=== PATIENT | female | born 1970 | race Caucasian/White ===

== ENCOUNTER 2016-12-05 05:41 | Outpatient (CLI) | payer MEDICAID | END 2016-12-05 05:42 | disposition critical access hospital (66) | DX: R50.9 Fever, unspecified (principal); R10.9 Unspecified abdominal pain | CPT/HCPCS: A0425; A0429 ==

== ENCOUNTER 2016-12-05 05:58 | Emergency (ER) | payer MEDICAID ==
[2016-12-05] MEDS ORDERED: ACETAMINOPHEN 325 MG TABLET PO STA (06:01)
[2016-12-05] MEDS ORDERED: ACETAMINOPHEN 500 MG TABLET PO ONE (06:05)
[2016-12-05] MEDS ORDERED: SODIUM CHLORIDE 0.9% 1,000 ML IV ONE (06:09)
== END 2016-12-05 07:41 | disposition home or self-care (01) ==
DX: R50.9 Fever, unspecified (principal); R00.0 Tachycardia, unspecified
CPT/HCPCS: 36415; 71010; 80053; 81003; 83690; 85025; 96360; 99284; A9270

== ENCOUNTER 2016-12-08 11:03 | Emergency (ER) | payer MEDICAID ==
[2016-12-08] MEDS ORDERED: SULFAMETH/TRIMETH DS 800/160 MG TABLET PO ONE (11:11)
[2016-12-08] MEDS ORDERED: ceFAZolin 1 GM VIAL IM STA (12:10)
[2016-12-08] MEDS ORDERED: ceFAZolin 1 GM VIAL ONE (12:13)
[2016-12-08] MEDS ORDERED: WATER FOR INJECTION,STERILE 10 ML ONE (12:13)
== END 2016-12-08 12:45 | disposition home or self-care (01) ==
DX: L03.115 Cellulitis of right lower limb (principal); S91.101A Unspecified open wound of right great toe without damage to nail, initial encounter; X58.XXXA Exposure to other specified factors, initial encounter; R03.0 Elevated blood-pressure reading, without diagnosis of hypertension

== ENCOUNTER 2017-06-25 09:16 | Emergency (ER) | payer MEDICAID ==
[2017-06-25 09:40] VITALS: BP 121/75
--- NOTE | 2017-06-25 10:41 | ED Physician Documentation ---
History of Present Illness - Stated complaint Stated Complaint: R LEG SWOLLEN/FEVER - Chief complaint Chief Complaint: Ext Problem - History obtained from History obtained from: Patient, Family - History of Present Illness Timing: How many days ago (2) - Additonal information Additional information: 46-year-old female has had some swelling and redness in the right lower extremity. This started out with a fever 3 days ago. She has had cellulitis in this leg previously and required repeated IM injections. Review of Systems Constitutional: reports: Fever, Chills, Myalgias, Fatigue Eyes: denies: Decreased vision Ears: denies: Ear pain Nose: denies: Congestion Respiratory: denies: Cough GI: denies: Vomiting Skin: reports: Rash Musculoskeletal: reports: Extremity pain, Extremity swelling. denies: Neck pain , Back pain Neurologic: denies: Generalized weakness, Focal weakness, Numbness PD PAST MEDICAL HISTORY - Past Medical History Cardiovascular: None Respiratory: None Neuro: None Endocrine/Autoimmune: None GI: None : None HEENT: Chronic hearing loss Psych: None Musculoskeletal: Osteoarthritis Derm: None - Past Surgical History Past Surgical History: Yes Ortho: Hip replacement - Present Medications Home Medications: Ambulatory Orders Medication Instructions Recorded Confirmed Ferrous Sulfate [Iron] 325 mg PO DAILY 10/28/14 06/25/17 Cefdinir 300 mg PO BID #20 capsule 06/25/17 - Allergies Allergies/Adverse Reactions: Allergies Allergy/AdvReac Type Severity Reaction Status Date / Time No Known Drug Allergies Allergy Verified 06/25/17 09:25 - Social History Does the pt smoke?: No Smoking Status: Never smoker Does the pt drink ETOH?: No Does the pt have substance abuse?: No PD ED PE NORMAL - Vitals Vital signs reviewed: Yes (tachy and hypertensive ) - General General: No acute distress, Well developed/nourished - HEENT HEENT: Atraumatic, PERRL - Respiratory Respiratory: No respiratory distress - Derm Derm: Normal color, Warm and dry - Extremities Extremities: No deformity, Other (There is swelling and tenderness with erythema to the right LE in an irregular distribution. There is no entrance wound. ) - Neuro Neuro: No motor deficit, No sensory deficit, Normal speech Eye Opening: Spontaneous Motor: Obeys Commands Verbal: Oriented GCS Score: 15 - Psych Psych: Normal mood, Normal affect Results - Vitals Vitals: Vital Signs - 24 hr 06/25/17 06/25/17 09:22 09:30 Temperature 36.9 C 36.8 C Heart Rate 120 H 108 H Respiratory 16 Rate Blood Pressure 129/84 H 121/75 O2 Saturation 99 97 Oxygen O2 Source Room air PD MEDICAL DECISION MAKING - ED course Complexity details: reviewed old records, reviewed results, re-evaluated patient , considered differential, d/w patient, d/w family ED course: 46-year-old female with cellulitis of right lower extremity started with a fever she has had this similarly previously here in the emergency department she is administered Rocephin 1 g intramuscular and we will place her on some oral antibiotic and follow-up. I have instructed her to use a warm compress 2- 3 times per day and to stay off of her leg for the most part. She has had a complicated course of this previously and I have asked her to return to the hospital if she does not have continued improvement. I do believe that we are catching this earlier this time around than previously. Departure - Departure Disposition: 01 Home, Self Care Clinical Impression: Cellulitis Qualifiers: Site of cellulitis: extremity Site of cellulitis of extremity: lower extremity Laterality: right Qualified Code(s): L03.115 - Cellulitis of right lower limb Condition: Stable Instructions: ED Infec Skin Cellulitis Follow-Up: Francois Strickland MD [Primary Care Provider] - Prescriptions: Cefdinir 300 mg PO BID #20 capsule
[2017-06-25] MEDS ORDERED: cefTRIAXone 1 GM VIAL IM STA (10:55)
[2017-06-25] MEDS ORDERED: cefTRIAXone 1 GM VIAL ONE (11:02)
[2017-06-25] MEDS ORDERED: LIDOCAINE 1% 2 ML VIAL ONE (11:03)
== END 2017-06-25 11:07 | disposition home or self-care (01) ==
LOC: ED 09:16
DX: L03.115 Cellulitis of right lower limb (principal)
CPT/HCPCS: 96372; 99283

== ENCOUNTER 2017-07-17 15:32 | Observation (INO) | payer MEDICAID ==
--- NOTE | 2017-07-17 16:00 | ED Physician Documentation ---
History of Present Illness - Stated complaint Stated Complaint: FEMALE - Chief complaint Chief Complaint: General - History obtained from History obtained from: Patient - History of Present Illness Timing: Other (46-year-old woman presents with heavy vaginal bleeding. It started today and she is gone through about 5 pads and extra strength tampons so far today. It is not associated weakness or dizziness. She had a similar episode about 10 days ago. She says her menses have been heavy and frequent. 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 HEENT: Chronic hearing loss Psych: None Musculoskeletal: Osteoarthritis Derm: None - Past Surgical History Past Surgical History: Yes Ortho: Hip replacement - Present Medications Home Medications: Ambulatory Orders Medication Instructions Recorded Confirmed Ferrous Sulfate [Iron] 325 mg PO DAILY 10/28/14 07/17/17 Cefdinir 300 mg PO BID #20 capsule 06/25/17 07/17/17 Norgestimate-Ethinyl Estradiol 1 each PO TID #1 packet 07/17/17 [Mononessa 28 Tablet] - Allergies Allergies/Adverse Reactions: Allergies Allergy/AdvReac Type Severity Reaction Status Date / Time No Known Drug Allergies Allergy Verified 06/25/17 09:25 - Social History Does the pt smoke?: No Smoking Status: Never smoker Does the pt drink ETOH?: No Does the pt have substance abuse?: No - Immunizations Immunizations are current?: No Immunizations: TDAP >10years/unknown - POLST Patient has POLST: No PD ED PE NORMAL - Vitals Vital signs reviewed: Yes - General General: Alert and oriented X 3, No acute distress - HEENT HEENT: PERRL, EOMI - Neck Neck: Supple, no meningeal sign, No bony TTP - Cardiac Cardiac: No murmur, Other (tachycardic, regular) - Respiratory Respiratory: No respiratory distress, Clear bilaterally - Abdomen Abdomen: Soft, Non tender - Female 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 Unable to visualize anything on spec exam.) - Back Back: No CVA TTP, No spinal TTP - Derm Derm: Normal color, Warm and dry - Extremities Extremities: No edema, No calf tenderness / cord - Neuro Neuro: Alert and oriented X 3, Normal speech Eye Opening: Spontaneous Motor: Obeys Commands Verbal: Oriented GCS Score: 15 - Psych Psych: Normal mood, Normal affect Results - Vitals Vitals: Vital Signs - 24 hr 07/17/17 07/17/17 07/17/17 15:35 17:36 19:41 Temperature 37.0 C 36.9 C 36.8 C Heart Rate 117 H 120 H 109 H Respiratory 22 15 16 Rate Blood Pressure 134/92 H 136/91 H 132/82 H O2 Saturation 100 98 07/17/17 07/17/17 20:07 20:11 Temperature 37.1 C 37.1 C Heart Rate 116 H 106 H Respiratory 16 16 Rate Blood Pressure 120/93 H 120/93 H O2 Saturation 100 Oxygen O2 Source Room air - Labs Labs: Laboratory Tests 07/17/17 07/17/17 07/17/17 16:06 16:06 16:06 WBC 5.0 RBC 2.68 L Hgb 7.6 L 7.6 L Hct 23.8 L 24.2 L MCV 90.4 MCH 28.4 MCHC 31.4 L RDW 15.3 H Plt Count 292 MPV 9.4 Neut # 3.3 Lymph # 1.0 L [place] # 0.4 Eos # 0.1 Baso # 0.1 Absolute Nucleated RBC 0.00 Nucleated RBC % 0.1 Sodium 138 Potassium 3.2 L Chloride 104 Carbon Dioxide 22 Anion Gap 12.0 BUN 9 Creatinine 0.9 Estimated GFR (MDRD) 67 L Glucose 107 H Calcium 9.2 Urine Color Urine Clarity Urine pH Ur Specific [place] Urine Protein Urine Glucose (UA) Urine Ketones Urine Occult Blood Urine Nitrite Urine Bilirubin Urine Urobilinogen Ur Leukocyte Esterase Urine RBC Urine WBC Ur Squamous Epith Cells Urine Bacteria Urine Mucus Ur Microscopic Review Urine Culture Comments Urine HCG, Qual Blood Type Blood Type Recheck Antibody Screen Crossmatch IS Only 07/17/17 07/17/17 07/17/17 16:06 16:15 18:15 WBC RBC Hgb Hct MCV MCH MCHC RDW Plt Count MPV Neut # Lymph # [place] # Eos # Baso # Absolute Nucleated RBC Nucleated RBC % Sodium Potassium Chloride Carbon Dioxide Anion Gap BUN Creatinine Estimated GFR (MDRD) Glucose Calcium Urine Color YELLOW Urine Clarity HAZY Urine pH 6.0 Ur Specific [place] 1.015 Urine Protein NEGATIVE Urine Glucose (UA) NEGATIVE Urine Ketones NEGATIVE Urine Occult Blood LARGE H Urine Nitrite NEGATIVE Urine Bilirubin NEGATIVE Urine Urobilinogen 0.2 (NORMAL) Ur Leukocyte Esterase NEGATIVE Urine RBC TNTC H Urine WBC 0-3 Ur Squamous Epith Cells RARE Squamous Urine Bacteria Few Urine Mucus Few Strands Ur Microscopic Review INDICATED Urine Culture Comments NOT INDICATED Urine HCG, Qual NEGATIVE Blood Type A POSITIVE Blood Type Recheck A POSITIVE Antibody Screen NEGATIVE Crossmatch IS Only See Detail PD MEDICAL DECISION MAKING - ED course ED course: 46-year-old woman found to have heavy vaginal bleeding with significant anemia in the setting of fibroid uterus on ultrasound. She was becoming tachycardic here so given the active bleeding decision made to transfuse and spoke with Dr. Tee, the on-call swimming pool cleaner at 5:45 PM who will see the patient in the emergency department. He did see the patient in the emergency department and what he would like would be for the patient received 2 units of packed red cells, IV Premarin and tranexamic acid. She is to be discharged on a monophasic control pill 3 times daily. He will see her on Friday in follow-up. However after further evaluation he decided to place her in observation which is not unreasonable given the active bleeding, tachycardia. IV Premarin was not available in the hospital, also no control pills so fredy was substituted. Departure - Departure Disposition: ED Place in Observation Clinical Impression: DUB (dysfunctional uterine bleeding) Fibroid uterus Qualifiers: Uterine leiomyoma location: unspecified location Qualified Code(s): D25.9 - Leiomyoma of uterus, unspecified Anemia Qualifiers: Anemia type: iron deficiency Iron deficiency anemia type: chronic blood loss Qualified Code(s): D50.0 - Iron deficiency anemia secondary to blood loss ( chronic) Condition: Good Record reviewed to determine appropriate education?: Yes Instructions: ED Bleed Irregular Vaginal Follow-Up: Karthik Tee MD [Provider Admit Priv/Credential] - Prescriptions: Norgestimate-Ethinyl Estradiol [Mononessa 28 Tablet] 1 each PO TID #1 packet Comments: Go to the pharmacy tomorrow to pickle 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 You are to take only the blue tablets, and you will take it [address] Tee would like to see you in follow-up on Friday, call his office tomorrow to arrange this. Return if worse.
[2017-07-17 16:11] LABS: HCT - HEMATOCRIT 23.8 % (37.0-47.0); HGB - HEMOGLOBIN 7.6 g/dL (12.0-16.0)
[2017-07-17 16:26] LABS: BILIRUBIN,URINE NEGATIVE (NEGATIVE)
[2017-07-17 16:28] LABS: UA w/ MICROSCOPIC CHARGE YES
[2017-07-17 16:29] LABS: HCG UR QUAL NEGATIVE
[2017-07-17 16:33] LABS: UR CULTURE IF IND NOT INDICATED; WBC,URINE 0-3 /HPF (0-5)
[2017-07-17 16:37] LABS: BASOPHILS # (AUTO) 0.1 10^3/uL (0.0-0.1); BASOPHILS % (AUTO) 1.2 %; EOSINOPHILS # (AUTO) 0.1 10^3/uL (0.0-0.7); EOSINOPHILS % (AUTO) 2.6 %; HCT - HEMATOCRIT 24.2 % (37.0-47.0); HGB - HEMOGLOBIN 7.6 g/dL (12.0-16.0); LYMPHOCYTES % (AUTO) 20.6 %; MEAN CORPUSCULAR HEMOGLOBIN 28.4 pg (27.0-31.0); MEAN CORPUSCULAR HGB CONC 31.4 g/dL (32.0-36.0); MEAN CORPUSCULAR VOLUME 90.4 fL (81.0-99.0); MEAN PLATELET VOLUME 9.4 fL (7.9-10.8); MONOCYTES # (AUTO) 0.4 10^3/uL (0.0-1.0); MONOCYTES % (AUTO) 8.8 %; NEUTROPHILS # (AUTO) 3.3 10^3/uL (1.5-6.6); NEUTROPHILS % (AUTO) 66.8 %; NUCLEATED RED BLOOD CELLS AUTO 0.1 /100WBC; RED BLOOD COUNT 2.68 10^6/uL (4.20-5.40); RED CELL DISTRIBUTION WIDTH 15.3 % (12.0-15.0)
[2017-07-17 16:42] LABS: CALCIUM 9.2 mg/dL (8.5-10.3); CREATININE 0.9 mg/dL (0.4-1.0); POTASSIUM 3.2 mmol/L (3.5-5.0)
[2017-07-17] MEDS ORDERED: ESTROGENS, CONJUGATED 25 MG VIAL IVP STA (18:45)
[2017-07-17] MEDS ORDERED: TRANEXAMIC ACID 1,000 MG in SODIUM CHLORIDE 0.9% 100ML 100 ML IV STA (18:45)
--- NOTE | 2017-07-17 18:50 | Ultrasound Preliminary Report ---
Exam: US PELVIC COMPLETE - NON OB IMPRESSION: 1. Limited examination. The uterus is poorly seen. The endometrium is not seen. The ovaries are not s een. 2. The uterus is enlarged and heterogeneous with at least 2 solid dominant masses measuring greater t burt 6 cm in diameter. These masses are nonspecific but most commonly represent uterine fibroids. [facility] SITE ID: [id number]
--- NOTE | 2017-07-17 18:53 | Ultrasound Report ---
EXAM: PELVIC ULTRASOUND EXAM DATE: 07/17/2017 04:33 PM. CLINICAL HISTORY: Heavy VB. COMPARISON: None. TECHNIQUE: Realtime transabdominal pelvic scan performed to identify the uterus and adnexa and as an overview of other pelvic structures, followed by transvaginal scan to provide greater detail of the u terus and adnexa, with static image documentation. FINDINGS: Uterus: 14 x 10.4 x 7 cm, volume 533 cc. The uterus is not well seen. The endometrium and myometrium junction is not seen. There are at least 2 solid markedly heterogeneous uterine masses. Masses: There is a left lateral fundal solid mass measuring 6.2 x 6.0 x 5.5 cm. There is a right late ral fundal solid mass measuring 6.2 x 5.2 x 4.9 cm. Other discrete masses are not seen with suboptima l visualization of the uterus. Endometrium: Not seen Cervix: Unremarkable. Right Ovary: Not seen Left Ovary: Not seen Free Fluid: None. Other: None. IMPRESSION: 1. Limited examination. The uterus is poorly seen. The endometrium is not seen. The ovaries are not s een. 2. The uterus is enlarged and heterogeneous with at least 2 solid dominant masses measuring greater t burt 6 cm in diameter. These masses are nonspecific but most commonly represent uterine fibroids. [facility] Referring Provider Line: [phone] SITE ID: [id number]
[2017-07-17] MEDS ORDERED: TRANEXAMIC ACID 1,000 MG/10 ML VIAL ONE (20:05)
[2017-07-17] MEDS ORDERED: ULIPRISTAL ACETATE 30 MG TABLET PO STA (20:08)
[2017-07-17] MEDS ORDERED: ZOLPIDEM 5 MG TABLET PO PRN (20:20)
[2017-07-17] MEDS ORDERED: ONDANSETRON 4 MG/2 ML VIAL IVP PRN (20:20)
[2017-07-17] MEDS ORDERED: ACETAMINOPHEN 325 MG TABLET PO PRN (20:20)
[2017-07-17] MEDS ORDERED: SODIUM CHLORIDE FLUSH 0.9% 10 ML SYRINGE IVP PRN (20:20)
[2017-07-17] MEDS ORDERED: HYDROcod/ACETAM 5/325 MG TABLET PO PRN (20:20)
[2017-07-17] MEDS ORDERED: ULIPRISTAL ACETATE 30 MG TABLET PO ONE (20:25)
[2017-07-17] MEDS ORDERED: diphenhydrAMINE 25 MG CAPSULE PO STA (20:31)
[2017-07-17] MEDS: SODIUM CHLORIDE FLUSH 0.9% 10 ML SYRINGE IVP SCH (23:06)
[2017-07-18] MEDS: NS W/20 MEQ KCL 1,000 ML IV SCH ×2 (02:18→05:18)
[2017-07-18] MEDS: SODIUM CHLORIDE FLUSH 0.9% 10 ML SYRINGE IVP SCH (05:18)
[2017-07-18 06:16] LABS: BASOPHILS # (AUTO) 0.1 10^3/uL (0.0-0.1); EOSINOPHILS # (AUTO) 0.1 10^3/uL (0.0-0.7); HCT - HEMATOCRIT 27.9 % (37.0-47.0); LYMPHOCYTES # (AUTO) 1.1 10^3/uL (1.5-3.5); LYMPHOCYTES % (AUTO) 20.7 %; MEAN CORPUSCULAR HEMOGLOBIN 28.1 pg (27.0-31.0); MEAN CORPUSCULAR HGB CONC 32.3 g/dL (32.0-36.0); MEAN CORPUSCULAR VOLUME 87.2 fL (81.0-99.0); MEAN PLATELET VOLUME 8.6 fL (7.9-10.8); MONOCYTES # (AUTO) 0.5 10^3/uL (0.0-1.0); MONOCYTES % (AUTO) 9.4 %; NEUTROPHILS # (AUTO) 3.7 10^3/uL (1.5-6.6); NEUTROPHILS % (AUTO) 66.9 %; NUCLEATED RED BLOOD CELLS AUTO 0.1 /100WBC; RED CELL DISTRIBUTION WIDTH 17.2 % (12.0-15.0); UNCORRECTED WHITE BLOOD COUNT 5.5 x10^3/uL; WHITE BLOOD COUNT 5.5 x10^3/uL (4.8-10.8)
[2017-07-18 06:26] LABS: ALBUMIN/GLOBULIN RATIO 1.7 (1.0-2.2); BILIRUBIN,TOTAL 1.2 mg/dL (0.2-1.0); CALCIUM 8.2 mg/dL (8.5-10.3); CREATININE 0.7 mg/dL (0.4-1.0); POTASSIUM 3.8 mmol/L (3.5-5.0); TOTAL PROTEIN 5.7 g/dL (6.7-8.2)
--- NOTE | 2017-07-18 08:52 | Discharge Plan ---
Discharge Plan Disposition: 01 Home, Self Care Condition: Stable Prescriptions: Norgestimate-Ethinyl Estradiol [Mononessa 28 Tablet] 1 each PO TID #1 packet Diet: Regular Activity Restrictions: No Restrictions Shower Restrictions: No Driving Restrictions: No Instruction Topics: ED Bleed Irregular Vaginal Additional Instructions or Follow Up instructions: Go to the pharmacy tomorrow to cloth picker the control. You are to take only the blue tablets, and you will take it [address] Tee would like to see you in follow-up on Friday, call his office tomorrow to arrange this. Return if worse. No Smoking: If you smoke, Please STOP! Call for help. Follow-up with: Karthik Tee MD [Provider Admit Priv/Credential] -
--- NOTE | 2017-07-18 08:55 | PROVIDER PROGRESS NOTE ---
Subjective - Prog Note Date Prog Note Date: 07/18/17 Prog Note Time: 09:00 - Subjective Pt reports feeling: Improved Subjective: Ms. Toth feels better and her vaginal bleeding has markedly reduced since myomectomy. We discussed the pathology found on her ultrasound and the need for future hysterectomy or uterine fibroid embolization. Patient's EKG suggest cardiac ischemia and hospitalist consultation requested. Patient states she can were walk 1/2 mile before becoming winded. Patient had a bowel movement this morning and is taking solid nutrition. Objective - Vital Signs/Intake & Output Vital Signs: Vital Signs x48h Temp Pulse Pulse Resp BP BP Pulse Ox 07/18/17 08:13 98.4 F 99 19 147/79 H 98 07/18/17 05:17 98.2 F 94 18 109/66 96 07/18/17 05:15 98.2 F 94 18 109/66 07/18/17 01:44 98.4 F 103 H 16 115/70 07/18/17 01:28 98.6 F 105 H 17 138/72 H Intake & Output: Intake & Output 07/15/17 07/16/17 07/17/17 07/18/17 23:59 23:59 23:59 23:59 Intake Total 1110 1070 Balance 1110 1070 - Lab Results Fish Bones: 07/18/17 06:00 07/18/17 06:00 Other Labs: Lab Results x24hrs 07/18/17 07/18/17 Range/Units 06:00 06:00 WBC 5.5 (4.8-10.8) x10^3/uL RBC 3.20 L (4.20-5.40) 10^6/uL Hgb 9.0 L (12.0-16.0) g/dL Hct 27.9 L (37.0-47.0) % MCV 87.2 (81.0-99.0) fL MCH 28.1 (27.0-31.0) pg MCHC 32.3 (32.0-36.0) g/dL RDW 17.2 H (12.0-15.0) % Plt Count 232 (130-450) 10^3/uL MPV 8.6 (7.9-10.8) fL Neut # 3.7 (1.5-6.6) 10^3/uL Lymph # 1.1 L (1.5-3.5) 10^3/uL [place] # 0.5 (0.0-1.0) 10^3/uL Eos # 0.1 (0.0-0.7) 10^3/uL Baso # 0.1 (0.0-0.1) 10^3/uL Absolute Nucleated RBC 0.01 x10^3/uL Nucleated RBC % 0.1 /100WBC Sodium 140 (135-145) mmol/L Potassium 3.8 (3.5-5.0) mmol/L Chloride 111 (101-111) mmol/L Carbon Dioxide 23 (21-32) mmol/L Anion Gap 6.0 (6-13) BUN 8 (6-20) mg/dL Creatinine 0.7 (0.4-1.0) mg/dL Estimated GFR (MDRD) 89 (>89) Glucose 92 (70-100) mg/dL Calcium 8.2 L (8.5-10.3) mg/dL Total Bilirubin 1.2 H (0.2-1.0) mg/dL AST 17 (10-42) IU/L ALT 13 (10-60) IU/L Alkaline Phosphatase 39 L (42-121) IU/L Total Protein 5.7 L (6.7-8.2) g/dL Albumin 3.6 (3.2-5.5) g/dL Globulin 2.1 (2.1-4.2) g/dL Albumin/Globulin Ratio 1.7 (1.0-2.2) Exam - Exam Vital Signs: Vital Signs (72 hours) 07/17/17 07/17/17 07/17/17 20:48 21:28 21:47 Temperature 98.3 F 98.2 F 98.2 F Heart Rate 96 100 Heart Rate [ 98 Apical] Respiratory 16 17 17 Rate Blood Pressure 127/72 140/81 H Blood Pressure 129/77 [Left Brachial artery] O2 Saturation 100 98 07/18/17 07/18/17 07/18/17 00:00 01:28 01:44 Temperature 98.1 F 98.6 F 98.4 F Heart Rate 105 H 103 H Heart Rate [ 109 H Apical] Respiratory 18 17 16 Rate Blood Pressure 138/72 H 115/70 Blood Pressure 112/60 [Left Brachial artery] O2 Saturation 98 07/18/17 07/18/17 07/18/17 05:15 05:17 08:13 Temperature 98.2 F 98.2 F 98.4 F Heart Rate 94 Heart Rate [ 94 99 Apical] Respiratory 18 18 19 Rate Blood Pressure 109/66 Blood Pressure 109/66 147/79 H [Left Brachial artery] O2 Saturation 96 98 General: Alert, Oriented x3, No acute distress HEENT: EOMI, Mucous membr. moist/pink Lungs: Clear to auscultation Cardiovascular: Regular rate, Normal S1, Normal S2 Abdomen: Normal bowel sounds, No tenderness, Other (Uterine bleeding has subsided only spotting on peripads) Extremities: No clubbing, No edema Skin: No significant lesion (Cellulitis) Neurological: Normal tone, Sensation intact Psych/Mental Status: Mood NL Assessment/Plan - Assessment/Plan Assessment: Patient's uterine bleeding has subsided and Hemoglobin has been corrected adequately. Patient's EKG shows possible cardiac ischemia which needs to be investigated and determined. Ultimately patient will require intervention such as hysterectomy or fibroid embolization to control her bleeding. Endometrial biopsy pending. Plan: 1. Patient's evaluation will continue with hospitalist consult and probable stress test today to rule out cardiac ischemia. 2. Obtain records from [facility] since patient is an unreliable historian 3. student services dean consult to determine patient's living situation and ability for self-care, Especially after possible surgery or embolization. 4. Patient to [facility]. Tee for continued follow-up and eventual treatment planning 5. If possible, will discharge patient today so that she may keep her appointment at the [facility].
[2017-07-18] MEDS ORDERED: POLYETHYLENE GLYCOL 3350 17 GM PACKET PO SCH (09:00)
--- NOTE | 2017-07-18 09:17 | HISTORY & PHYSICAL EXAMINATION ---
DATE OF OBSERVATION: 07/17/2017 Observation Note. DIAGNOSES 1. Menorrhagia. 2. Severe anemia (hemoglobin 7.6). 3. Tachycardia. 4. Uterine leiomyoma on ultrasound. Patient is a 46-year-old 2, para 1-0-1-0 (stillbirth x1, spontaneous AB x1) who presents to [facility] emergency room with copious vaginal bleeding that started today. She has saturated 6-7 pads and co ntinues to bleed. She has a heart rate between 120 and 110 but maintaining blood pressure in the 130s over 90s realm. She denies orthostatic dizziness but does feel very fatigued and weak. She has a roberto gstanding history of menorrhagia and was on oral iron therapy at the [facility]. We are unable to her records. There is a question of developmental delay. Records are on request. She denies any abnor mal Pap smears, the last was done 5 years ago at [facility]. She admits to chlamydia in the past. She is not currently sexually active. She has no breast complaints to report. She does not fe el as if she is menopausal, though she had hot flashes 6 months ago. She denies easy bleeding tendenc ies and denies family history of easy bleeding. She denies thromboembolic events in the past. PAST MEDICAL HISTORY: She denies chronic history but is known to have osteoarthritis. 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 She denies compl ications in that procedure. ALLERGIES: NO KNOWN DRUG ALLERGIES. MEDICATIONS 1. Ferrous sulfate 325 daily. 2. Cefdinir. 3. Just started mononessa OCPs. SOCIAL HISTORY: Lives in a group apartment complex. Has a boyfriend who helps her with transportation . Denies tobacco or substance abuse, has socially consumed 1-2 drinks a month. End-of-life directive not on file. REVIEW OF SYSTEMS CONSTITUTIONAL: Weakness, fatigue. ENT: Negative. CARDIAC: Negative. RESPIRATORY: Negative. GASTROINTESTINAL: Negative. GENITOURINARY: Reference HPI. MUSCULOSKELETAL: Arthritides particularly in the lower extremities. SKIN: Recent minor cellulitis. REVIEW OF SYSTEMS GENERAL: Patient is slower than expected in comprehension but is cooperative and good natured. Instru ctions and questions were repeated at least 2-3 times to ensure comprehension. HEENT: Dental plaque, caries. EOMI. Non-icteric sclerae. No thyromegaly. LUNGS: Clear to auscultation. CARDIAC: Rapid pulse, flow murmur, systolic ejection murmur, no gallop or rub. ABDOMEN: Obese. No organomegaly, no tenderness. EXTERNAL GENITALIA: Blood on sheets and external genitalia; no lesions. VAGINA: Small clots at the top; over time, flow slowed. CERVIX: Blocking the endocervical canal was a 2 x 1.5 fibroid. UTERUS: 8-10 weeks' size, multi-lobular, nontender. ADNEXA: Normal mobile ovaries, difficult to estimate exact size due to body habitus. EXTREMITIES: Hip replacement scars. No calf tenderness, no edema. NEUROLOGIC: Grossly intact, but detailed exam not accomplished. LABORATORY: Hemoglobin 7.6, platelets 292, potassium 3.2 low, sodium 138, creatinine 0.9, glucose 107 . Blood type A positive, antibody screen negative, 2 units being prepared. Quantitative beta-hCG neg ative. Urinalysis: Blood contamination, but otherwise normal. ASSESSMENT: Patient has heavy vaginal bleeding today that has resulted in severe anemia and tachycard ia. The bleeding seems to be from fibroids, but given her age, assessment of uterine cavity is requir ed. Endometrial biopsy was accomplished uneventfully. Will begin medical therapy to stabilize her end ometrial lining. Desired Premarin IV but not available in the hospital. Substituted combination E/P c ontraceptive 3 tabs daily with tranexamic acid. Due to patient's symptoms and her baseline cognitive understanding, she will be admitted overnight for observation. PLAN 1. Two units packed red blood cells. 2. Combination oral contraceptives t.i.d. 3. Tranexamic acid as an antifibrinolytic. 4. Reevaluation in the morning. 5. If bleeding becomes brisk overnight, we will consider transfer to a facility having active OR. 6. Discussed this plan with patient's guardian by telephone earlier. Discussed this with the patient, who was in concordant with this plan. JOB #: [id number] EXT JOB #:[id number]
--- NOTE | 2017-07-18 09:26 | OPERATIVE REPORT ---
DATE OF SURGERY: 07/17/2017 00:00:00 PREOPERATIVE DIAGNOSES 1. Menorrhagia with severe anemia (hemoglobin 7.6) and tachycardia. 2. Known leiomyomata. POSTOPERATIVE DIAGNOSES 1. Menorrhagia with severe anemia (hemoglobin 7.6) and tachycardia. 2. Known leiomyomata. 3. Await pathology. PROCEDURES 1. Myomectomy, transcervical. 2. Endometrial biopsy. SURGEON: Karthik Tee MD, FACOG ANESTHESIA: None. BLOOD LOSS: Approximately 10-15 mL during the procedure; prior to that at least 300 mL on bed sheets and then by historical account. COMPLICATIONS: None. FINDINGS: The uterus is 8-10 weeks' size, lobular, and with fibroids. There is a single fibroid 1.5 x 2.0 cm prolapsed into the endocervical canal. The cavity sounds to a distance of 8.5. Ovaries seem n ormal by palpation. SPECIMENS 1. Previously mentioned fibroid. 2. Endometrial biopsy. TECHNIQUE: Prior to the procedure, we reviewed and the intent, mechanics, risks and benefits with the patient. She signed the appropriate informed consent paperwork. Patient was in the low dorsal lithotomy position. A lighted speculum was inserted and the upper porti on of the vagina evacuated of clots. There was a significant size leiomyoma blocking the way into the endocervical canal. This was grasped with single-tooth tenaculum and rotated until it was uneventful ly avulsed. This stemmed some of the bleeding. Next the endocervical barrel was grasped with a single-tooth tenaculum and the Pipelle introduced thr ough the canal for a distance of about 8.5 cm. Pipelle was actuated and swept about the cavity. A mod erate amount of bloody tissue was obtained. At this point, the procedure was terminated. All instrume nts were removed. We observed the cervix for 3 minutes to 4 minutes to ensure that there was no signi ficant bleeding. DISPOSITION: Patient was then admitted to the hospital for observation in stable condition. JOB #: [id number] EXT JOB #:[id number]
[2017-07-18 13:35] VITALS: BP 136/79
--- NOTE | 2017-07-18 14:24 | CONSULTATION NOTE ---
DATE OF CONSULTATION: LOCATION: Observation. HISTORY OF PRESENT ILLNESS: This is a 46-year-old white female with a history of developmental delay, she lives in a fdc. The patient presented with vaginal bleeding and was admitted for transfus ion because of significant anemia and continued vaginal bleeding and was under the care of TITLE I ASSISTANT. Sandra overton did receive a transfusion and hemoglobin improved from 7.6-9.0. Today, she underwent an EKG, possib ly due to tachycardia at rest) and a cardiology consult was called because of an abnormal EKG. Dr. Jonny murray, the TITLE I ASSISTANT tells me that the patient will need a hysterectomy in approximately 1 week and will t herefore need cardiopulmonary clearance. PAST MEDICAL HISTORY 1. Developmental delay, lives in a fdc. 2. Iron deficiency, possibly due to anemia. REVIEW OF SYSTEMS: The patient describes no chest pain, denies shortness of breath with gentle activi ty, but did tell Dr. Tee that she gets short of breath after walking 1 block. She denies palpitatio ns, lightheadedness or syncope. She denies leg edema. She denies any past cardiac history or pulmonar y history. A comprehensive review of systems was performed and is negative except for the above. MEDICATIONS AT HOME 1. Ginkgo biloba. 2. Iron. 3. Multivitamin. 4. Estradiol. ALLERGIES: NONE. SOCIAL HISTORY: She never smoked, drinks extremely rare alcohol, denies any drug use. PHYSICAL EXAMINATION: GENERAL: Reveals a mildly obese white female in no acute distress. VITAL SIGNS: Blood pressure 109/66, pulse 94 and sinus rhythm, afebrile, oxygen saturation 96% on j luis m air. HEENT: Reveals dysmorphic facial features with wide set eyes and a long facial structure. Her oral mu cosa is moist. NECK: Shows no JVD. No carotid bruits are heard. CHEST: Clear. HEART: Sounds are normal. No audible murmurs. There is no RV or gallop. ABDOMEN: Soft, obese. Positive bowel sounds. Nontender. EXTREMITIES: No clubbing, cyanosis or edema. No calf tenderness. NEUROLOGIC: Intact. LAB DATA: Labs today. Normal electrolytes, normal BUN, creatinine, normal liver test. Hemoglobin was 7.6 and after transfusion 9.0. The rest of the CBC is unremarkable. Her urine had large occult blood, but otherwise unremarkable. EKG, sinus tachycardia at a rate of 110, diffuse ST-T abnormalities - ischemia cannot be ruled out, p rolonged QT interval of 597. There is no old EKG available for comparison. She had no chest x-ray done during this admission. IMPRESSION/DIAGNOSES 1. Abnormal EKG. 2. Shortness of breath. 3. Anemia, felt to be due to vaginal bleeding. 4. ASSOCIATE CHEMIST abnormality with fibroid which will require hysterectomy. 5. Developmental delay and dysmorphic faces. PLAN: The patient should undergo preoperative stress testing given her abnormal resting EKG and no pr evious EKG for comparison. Lipid testing should be done for risk stratification. The patient should h ave an echo to evaluate overall structural heart findings given this abnormal EKG. A stress test woul d need to get prior authorization by the PCP, this depends on her insurance coverage. If the patient is unable to follow commands to do treadmill for the stress portion, a nuclear stress test with Sada can and nuclear imaging should be done. Because of the resting EKG abnormality, a plain treadmill elian t is not adequate, she needs some form of imaging during the stress test. Thank you for allowing me to participate in the care of this patient. JOB #: [id number] EXT JOB #:[id number]
== END 2017-07-18 13:53 | disposition home or self-care (01) ==
LOC: ED 15:32 → OBS 20:20
PROVIDERS: ADMIT Obstetrics & Gynecology; ATTEND Obstetrics & Gynecology
PROC: 0UB97ZZ Excision of Uterus, Via Natural or Artificial Opening (ICD-10-PCS; principal; 2017-07-17)
PROC: 0UB97ZX Excision of Uterus, Via Natural or Artificial Opening, Diagnostic (ICD-10-PCS; 2017-07-17)
DX: D25.9 Leiomyoma of uterus, unspecified (principal); D62 Acute posthemorrhagic anemia; R94.31 Abnormal electrocardiogram [ECG] [EKG]; R00.0 Tachycardia, unspecified; H91.90 Unspecified hearing loss, unspecified ear; M19.90 Unspecified osteoarthritis, unspecified site; E66.9 Obesity, unspecified; Z68.32 Body mass index [BMI] 32.0-32.9, adult; R62.50 Unspecified lack of expected normal physiological development in childhood; Z96.643 Presence of artificial hip joint, bilateral; Z79.3 Long term (current) use of hormonal contraceptives; Z79.899 Other long term (current) drug therapy
CPT/HCPCS: 36415; 36430; 58145; 76830; 76856; 80048; 80053; 81001; 81025; 85014; 85018; 85025; 86850; 86900; 86901; 86920; 87491; 87591; 93005; 96365; 99284; 99285; A9270; G0378; P9016; 81003; 87086

== ENCOUNTER 2017-07-31 08:00 | Outpatient (CLI) | payer MEDICAID ==
[2017-07-31 19:21] LABS: THYROID STIMULATING HORMONE 2.75 uIU/mL (0.34-5.60)
[2017-07-31 19:49] LABS: FOLLICLE STIMULATING HORMONE 3.23 mIU/mL
== END 2017-07-31 23:59 ==
LOC: LAB.N 08:00
PROVIDERS: ATTEND Obstetrics & Gynecology
DX: Z13.29 Encounter for screening for other suspected endocrine disorder (principal); N95.9 Unspecified menopausal and perimenopausal disorder
CPT/HCPCS: 36415; 83001; 83002; 84436; 84439; 84443

== ENCOUNTER 2017-08-14 08:36 | Outpatient (CLI) | payer MEDICAID ==
[2017-08-14 19:11] LABS: HGB - HEMOGLOBIN 12.4 g/dL (12.0-16.0); MEAN CORPUSCULAR HEMOGLOBIN 28.6 pg (27.0-31.0); MEAN CORPUSCULAR HGB CONC 31.4 g/dL (32.0-36.0); MEAN CORPUSCULAR VOLUME 90.8 fL (81.0-99.0); MEAN PLATELET VOLUME 10.2 fL (7.9-10.8); RED BLOOD COUNT 4.34 10^6/uL (4.20-5.40); RED CELL DISTRIBUTION WIDTH 15.7 % (12.0-15.0); WHITE BLOOD COUNT 6.3 x10^3/uL (4.8-10.8)
== END 2017-08-14 08:37 ==
LOC: LAB.N 08:36
PROVIDERS: ATTEND Obstetrics & Gynecology
DX: N92.4 Excessive bleeding in the premenopausal period (principal)
CPT/HCPCS: 36415; 85025

== ENCOUNTER 2017-08-15 08:00 | Outpatient (CLI) | payer MEDICAID | END 2017-08-15 23:59 | disposition home or self-care (01) | LOC: LAB.R 08:00 | PROVIDERS: ATTEND Obstetrics & Gynecology | DX: D50.9 Iron deficiency anemia, unspecified (principal) | CPT/HCPCS: 82270 ==

== ENCOUNTER 2017-09-15 11:43 | Outpatient (CLI) | payer MEDICAID ==
[2017-09-15 12:33] LABS: BASOPHILS # (AUTO) 0.1 10^3/uL (0.0-0.1); BASOPHILS % (AUTO) 0.9 %; EOSINOPHILS # (AUTO) 0.1 10^3/uL (0.0-0.7); EOSINOPHILS % (AUTO) 1.4 %; HGB - HEMOGLOBIN 12.1 g/dL (12.0-16.0); LYMPHOCYTES # (AUTO) 1.1 10^3/uL (1.5-3.5); LYMPHOCYTES % (AUTO) 18.8 %; MEAN CORPUSCULAR HEMOGLOBIN 29.4 pg (27.0-31.0); MEAN CORPUSCULAR HGB CONC 33.7 g/dL (32.0-36.0); MEAN CORPUSCULAR VOLUME 87.4 fL (81.0-99.0); MEAN PLATELET VOLUME 9.3 fL (7.9-10.8); MONOCYTES # (AUTO) 0.5 10^3/uL (0.0-1.0); MONOCYTES % (AUTO) 8.3 %; NEUTROPHILS # (AUTO) 4.2 10^3/uL (1.5-6.6); NEUTROPHILS % (AUTO) 70.6 %; PLT - PLATELET COUNT 243 10^3/uL (130-450); RED BLOOD COUNT 4.12 10^6/uL (4.20-5.40); RED CELL DISTRIBUTION WIDTH 14.5 % (12.0-15.0)
[2017-09-15 12:49] LABS: ALBUMIN 4.6 g/dL (3.2-5.5); ALBUMIN/GLOBULIN RATIO 1.6 (1.0-2.2); BILIRUBIN,TOTAL 0.3 mg/dL (0.2-1.0); CREATININE 0.8 mg/dL (0.4-1.0); TOTAL PROTEIN 7.4 g/dL (6.7-8.2)
== END 2017-09-15 11:44 | disposition home or self-care (01) ==
LOC: LAB 11:43
PROVIDERS: ATTEND Obstetrics & Gynecology
DX: N92.0 Excessive and frequent menstruation with regular cycle (principal)
CPT/HCPCS: 36415; 80053; 85025; 86850; 86900; 86901

== ENCOUNTER 2017-09-17 07:01 | Observation (INO) | payer MEDICAID ==
--- NOTE | 2017-09-16 09:05 | PREOP HISTORY & PHYSICAL ---
DATE OF SERVICE: 09/15/2017 Physician: Karthik Tee MD ANTICIPATED SURGERY: 09/17/2017. DIAGNOSES 1. Large fibroid uterus, 12-week size or greater. 2. Menorrhagia. 3. History of severe anemia (hemoglobin 7.6) associated with tachycardia. INTENDED PROCEDURE: Laparoscopic assisted vaginal hysterectomy; bilateral salpingectomy; possible laparotomy; Cystoscopy. HISTORY OF PRESENT ILLNESS: Patient is a 46-year-old 2, para 1-0-1-0 (stillbirth x1, spontaneous AB x1) who presented to the emergency room on 2016 with severe uterine bleeding and deep symptomatic anemia (hemoglobin 7.6). She reports fatigue, weakness. She has a long history of menorrhagia and was on supplemental iron therapy at the [facility]. Ultrasound confirmed bulky uterine fibroids with the uterus measuring 14 x 10.5 x 7 cm. Right and left ovary were not seen. She was hospitalized and transfused 3 units of packed red blood cells. She followed up in our clinic in which endometrial biopsy was done which confirmed benign pathology. Thyroid studies were normal and FSH showed that the patient was not menopausal. Patient notes pelvic pressure and pain. She has no easy bleeding history or family history of coagulopathy. PAST MEDICAL HISTORY: She denies chronic disease history, but is known to have osteoarthritis. 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 She denies any complications from that procedure. ALLERGIES: NO KNOWN DRUG ALLERGIES. MEDICATIONS 1. Ferrous sulfate 325 t.i.d. 2. Mononessa OCPs for endometrial suppression. SOCIAL HISTORY: The patient lives in a group apartment complex and has a boyfriend who helps her with transportation. She denies tobacco, substance abuse. Socially she consumes 1 to 2 drinks a month. An End of Life Directive is not on file. She has a pet dog, which she is very close to. FAMILY HISTORY: Denies inheritable disease history. REVIEW OF SYSTEMS CONSTITUTIONAL: Prior weakness and fatigue. HEENT: Negative. CARDIAC: Negative. RESPIRATORY: Negative. GASTROINTESTINAL: Negative. : Reference HPI. MUSCULOSKELETAL: Arthritides particularly in the lower extremity. DERMATOLOGIC: Negative. PHYSICAL EXAMINATION GENERAL: The patient is a slightly slower than expected in comprehensive, but is cooperative and good natured. Instructions and questions were repeated at least twice to ensure comprehension. HEENT: Dental caries. EOMI. Nonicteric sclerae. NECK: No thyromegaly. LUNGS: Clear to auscultation. CARDIOVASCULAR: Normal pulses and rhythm. No significant murmur, gallop or rub. ABDOMEN: Obese. No organomegaly, nontender. GENITALIA: External genitalia with no obvious lesions. VAGINA: No blood or discharge. CERVIX: Intercervical fibroid. UTERUS: 10 to 12 weeks size, multilobular, nontender. ADNEXA: Cannot palpate easily due to body habitus and fibroids. EXTREMITIES: Hip replacement scars. No calf tenderness, no edema. NEUROLOGIC: Grossly intact. Cranial nerves grossly intact. SKIN: Survey of skin finds no lesions. LABORATORY DATA: labs pending. ASSESSMENT: The patient has a known large fibroids that have resulted in menorrhagia and severe anemia. She is not a perimenopausal. In addition to bleeding complaints there are pressure and pain complaints that prompted the patient to consider surgical intervention. Information handouts on fibroids and hysterectomy were dispensed and reviewed in detail. PLAN: The patient desires removal of the fibroids and hence hysterectomy. We detailed the risks inclusive of blood loss, transfusion, infection, damage to urinary tract vessels and nerves. She also understands there is a possibility of anesthesia reaction and even . I anticipate laparoscopic assisted vaginal hysterectomy with bilateral salpingectomy. The space may be tight and there is a possibility of laparotomy. Cystoscopy will be performed post surgery to ensure there is no urinary tract damage. NOTE TO ASSISTING STAFF: The patient has a hip prosthesis which are probably metallic and therefore care should be taken in placement of the Bovie pad. She is not allergic to any antibiotics, and so a standard Ancef will be used. In terms of general health she has no major concerns other than the arthritis. Informed consent paperwork was signed. TD: 09/15/2017 19:46 HANY
[2017-09-17 07:36] LABS: HCG UR QUAL NEGATIVE
[2017-09-17] MEDS ORDERED: ceFAZolin 2 GM/50 ML 2 GM/50 ML BAG IV ONE (07:38)
[2017-09-17] MEDS ORDERED: SCOPOLAMINE PATCH TOP ONE (08:17)
[2017-09-17] MEDS ORDERED: LACTATED RINGERS 1,000 ML IV ONE ×4 (08:23→13:55)
[2017-09-17] MEDS ORDERED: BUPIVACAINE 0.25%-EPI 1:200000 PF 10 ML VIAL SUBQ ONE ×2 (10:52)
[2017-09-17] MEDS ORDERED: HYDROmorphone 1 MG/ML SYRINGE IVP PRN (13:22)
[2017-09-17] MEDS ORDERED: ZOLPIDEM 5 MG TABLET PO PRN (13:22)
[2017-09-17] MEDS ORDERED: ONDANSETRON 4 MG/2 ML VIAL IVP PRN (13:22)
[2017-09-17] MEDS ORDERED: ACETAMINOPHEN 1,000 MG/100 ML 100 ML IV ONE (13:23)
[2017-09-17] MEDS ORDERED: ONDANSETRON 4 MG/2 ML VIAL IVP ONE (13:23)
[2017-09-17] MEDS ORDERED: LIDOCAINE-MPF 2% 5 ML VIAL IM ONE (13:23)
[2017-09-17] MEDS ORDERED: fentaNYL 100 MCG/2 ML VIAL IVP ONE (13:23)
[2017-09-17] MEDS ORDERED: ROCURONIUM 50 MG/5 ML VIAL IVP ONE (13:23)
[2017-09-17] MEDS ORDERED: NEOSTIGMINE 1 MG/1 ML 10 ML MDV IVP ONE (13:23)
[2017-09-17] MEDS ORDERED: GLYCOPYRROLATE 1 MG/5 ML VIAL IVP ONE (13:23)
[2017-09-17] MEDS ORDERED: PROPOFOL 200 MG/20 ML VIAL IVP ONE (13:23)
[2017-09-17] MEDS ORDERED: ALPRAZolam 0.25 MG TABLET PO PRN (13:30)
--- NOTE | 2017-09-17 13:34 | OPERATIVE REPORT ---
Operative Report - General Procedure Date: 09/17/17 Pre-Op Diagnosis: LAVH Poss VERNELL Procedure Performed: LAVH, Bilat Salphingostomy: Cysto Post Op Diagnosis: 15 wk Fibriods - Procedure Note Primary Surgeon: Randal Secondary Surgeon: Nicole Anesthesia Provider: Vincenzo Anesthesia Technique: General ET tube IV Fluids (mL): 1,000 Estimated Blood Loss (mL): 500 Urine Output (mL): 400 Drain/Tube Type: Other (Starks) Complications: None
[2017-09-17] MEDS ORDERED: DEXAMETHASONE 4 MG/ML VIAL ONE (15:17)
[2017-09-17] MEDS ORDERED: ONDANSETRON 4 MG/2 ML VIAL ONE (15:17)
[2017-09-17] MEDS ORDERED: SODIUM CHLORIDE FLUSH 0.9% 10 ML SYRINGE ONE (15:18)
[2017-09-17] MEDS ORDERED: HYDROmorphone 1 MG/ML SYRINGE ONE (15:25)
[2017-09-17] MEDS: ACETAMINOPHEN 500 MG TABLET PO SCH ×2 (16:30→21:18)
[2017-09-17] MEDS: IBUPROFEN 600 MG TABLET PO SCH ×2 (19:19→23:48)
[2017-09-17] MEDS: LACTATED RINGERS 1,000 ML IV SCH (19:42)
[2017-09-17] MEDS: DOCUSATE SODIUM 100 MG CAPSULE PO SCH (21:19)
[2017-09-18] MEDS: IBUPROFEN 600 MG TABLET PO SCH ×2 (05:44→11:19)
[2017-09-18] MEDS: LACTATED RINGERS 1,000 ML IV SCH (05:45)
[2017-09-18] MEDS: ACETAMINOPHEN 500 MG TABLET PO SCH (05:45)
[2017-09-18 06:10] LABS: BASOPHILS % (AUTO) 0.1 %; HGB - HEMOGLOBIN 9.2 g/dL (12.0-16.0); LYMPHOCYTES # (AUTO) 0.9 10^3/uL (1.5-3.5); LYMPHOCYTES % (AUTO) 8.1 %; MEAN CORPUSCULAR HEMOGLOBIN 28.2 pg (27.0-31.0); MEAN CORPUSCULAR HGB CONC 32.1 g/dL (32.0-36.0); MEAN CORPUSCULAR VOLUME 87.9 fL (81.0-99.0); MEAN PLATELET VOLUME 9.3 fL (7.9-10.8); MONOCYTES # (AUTO) 0.8 10^3/uL (0.0-1.0); MONOCYTES % (AUTO) 7.8 %; NEUTROPHILS # (AUTO) 9.1 10^3/uL (1.5-6.6); PLT - PLATELET COUNT 229 10^3/uL (130-450); RED BLOOD COUNT 3.26 10^6/uL (4.20-5.40); RED CELL DISTRIBUTION WIDTH 14.8 % (12.0-15.0); WHITE BLOOD COUNT 10.8 x10^3/uL (4.8-10.8)
[2017-09-18 08:01] VITALS: BP 101/71
[2017-09-18] MEDS: DOCUSATE SODIUM 100 MG CAPSULE PO SCH (08:16)
--- NOTE | 2017-09-18 17:38 | PROVIDER PROGRESS NOTE ---
Subjective - General Admit Date: 09/17/17 Procedure Date: 09/17/17 Post Op Days: 1 Procedure Performed: LAVH, bilateral salpingectomy, cystoscopy - Review of Systems Wound/Incisions: positive: Healing well Drain Type: Starks discontinued General: positive: No symptoms HEENT: positive: No symptoms Pulmonary: positive: No symptoms Gastrointestinal: positive: No symptoms, Flatus (No bowel movement yet) Genitourinary: positive: No symptoms (Starks out) Musculoskeletal: positive: No symptoms Skin: positive: No symptoms Neurological: Psychiatric: positive: No symptoms Objective - Patient Data Weight: Weight 09/16/17 09/17/17 09/18/17 23:59 23:59 23:59 Weight (kg) 87.4 kg Intake & Output: Intake and Output Totals x24h 09/16/17 09/17/17 09/18/17 23:59 23:59 23:59 Intake Total 330 2243.333 Output Total 950 1150 Balance -620 1093.333 - Lab Results Lab Results: 09/18/17 05:37 Other Lab Results: Lab Results x24hrs 09/18/17 Range/Units 05:37 WBC 10.8 (4.8-10.8) x10^3/uL RBC 3.26 L (4.20-5.40) 10^6/uL Hgb 9.2 L (12.0-16.0) g/dL Hct 28.6 L (37.0-47.0) % MCV 87.9 (81.0-99.0) fL MCH 28.2 (27.0-31.0) pg MCHC 32.1 (32.0-36.0) g/dL RDW 14.8 (12.0-15.0) % Plt Count 229 (130-450) 10^3/uL MPV 9.3 (7.9-10.8) fL Neut # 9.1 H (1.5-6.6) 10^3/uL Lymph # 0.9 L (1.5-3.5) 10^3/uL [place] # 0.8 (0.0-1.0) 10^3/uL Eos # 0.0 (0.0-0.7) 10^3/uL Baso # 0.0 (0.0-0.1) 10^3/uL Absolute Nucleated RBC 0.00 x10^3/uL Nucleated RBC % 0.0 /100WBC Physical Exam - Physical Exam General: positive: Alert, Other (Pain well controlled) HEENT: positive: Moist mucous membranes Neck: positive: Supple w/out meningeal sx Cardiac: positive: Regular Rate Resipratory: positive: Clear to ausultation layla Abdomen: positive: Normal Bowel sounds, Surgical Scars (Trocar sites maturing normally) Female : positive: Other (Minimal blood and no discharge on pad), [employer] present Skin: positive: Warm and dry Neurologic: positive: Alert and Oriented X 3, Normal Sensation, Normal Speech Assessment/Plan - Assessment/Plan Assessment: Patient is recovering very well and is alert. Presence of sister and intensive nursing education is been helpful. Anemia well-tolerated Plan: Preparing for discharge * Reviewed use of pain medications, prescription for Motrin and [place] and Colace already given * Reviewed warning sign and callback instructions * Discussed limitations of activity with the patient and her sister. * Wound check in 2 weeks
--- NOTE | 2017-09-18 17:43 | Discharge Plan ---
Discharge Plan Disposition: 01 Home, Self Care Condition: Good Diet: Regular Activity Restrictions: Activity as Tolerated Shower Restrictions: No Driving Restrictions: No Weight Bearing: Full Weight No Smoking: If you smoke, Please STOP! Call for help. Follow-up with: Francois Strickland MD [Primary Care Provider] - Karthik Tee MD [Provider Admit Priv/Credential] -
--- NOTE | 2017-09-19 05:07 | OPERATIVE REPORT ---
DATE OF SERVICE: 09/17/2017 Physician: Karthik Tee MD PREOPERATIVE DIAGNOSES 1. Large fibroid uterus, 12 week size or greater. 2. Menorrhagia. 3. History of severe anemia (hemoglobin 7.6) associated with tachycardia and transfusion. 4. Developmental delay. 5. Bilateral hip replacement. 6. Obesity. POSTOPERATIVE DIAGNOSES 1. 15-16 week size uterus. 2. Menorrhagia. 3. History of severe anemia (hemoglobin 7.6) associated with tachycardia and transfusion. 4. Developmental delay. 5. Bilateral hip replacement. 6. Obesity. PROCEDURE PERFORMED 1. Laparoscopic assisted vaginal hysterectomy. 2. Bilateral salpingectomy. 3. Cystoscopy. SURGEON: Karthik Tee MD, FACOG, FICS HIMS CLERK: Karthik Rivera MD, FACOG ANESTHESIA: Justyn Foote MD ANESTHESIA TYPE: General with ET tube. COMPLICATIONS: None. DRAINS: Starks with approximately 400 mL of clear urine. ESTIMATED BLOOD LOSS: 500. FINDINGS 1. Exam under anesthesia finds no vulvar or vaginal lesions. There is some old blood in the vault. The introitus, vagina and cervix are all nulliparous and fairly small opening. The uterus by exam under anesthesia seems 15-16 week size with a fair amount of bulk on the sidewalls and in the posterior cul-de-sac. Intraoperatively, the ovaries appeared to be normal as did the tubes. TECHNIQUE: Prior to surgery, I met the patient and her sister (legal guardian) in the preanesthesia room. We discussed the nature of her fibroids, anemia and possible treatments. The risks of hysterectomy were once again reviewed and the possibility for the need of laparotomy. The patient is certain in her decision with the backing of her sister. All questions were answered. The patient was placed on the operating table in the supine position. She was uneventfully induced and intubated. She was moved to the low dorsal lithotomy position on mobile [facility]. She was prepped and draped in the customary sterile fashion. Timeout briefing was done per protocol. At first we attempted to insert a HUMI uterine manipulator, but the extensive fibroid change and distortion of the cavity caused it to be expelled. VCare catheter was substituted since it was more slender with a larger bulb. V Care was successfully inserted. A small incision was placed under the umbilical skin fold and using Visiport, direct entry was made into the abdomen. Abdomen was insufflated with CO2 gas under 12 mm of pressure. Anesthetic was inserted in all trocar ports before insertion. Right and left lower quadrant ports were placed higher than normal due to the size of the uterus. The port insertion was uneventful under direct visualization. The abdominal cavity was assessed and photographed. Beginning on the right side, the tube was tented medially and superiorly. The LigaSure was used then to desiccate and cut the mesenteric portion of the tube. Utero- ovarian ligament and round ligaments were desiccated & divided. We continued our dissection down around the fibroids and to the bladder. Scissors were used for bladder dissection. A third midline port was placed to help elevate the bladder flap and work around the distorted fibroid uterus. Right uterine vessels were desiccated and divided at the isthmus. Bladder flap was developed with sharp dissection. Next, the process was carried out in a similar manner on the left hand side. On the left, a distorting fibroid made it difficult to go much further below the uterine vessel bundle. The uterine vessels were completely secure. At this point, we turned to the vaginal phase. The abdomen was desufflated of CO2 gas. Rafael clamps were placed on the cervix to provide traction. Small aliquots of Marcaine with epinephrine were injected in a halo fashion around the cervix. The cervix was then circumscribed with a Bovie pencil. Posterior cul-de-sac was entered, but it took 2 attempts. There was a fair amount of redundant tissue and fat. Once entry was made into the posterior cul-de-sac, a Bar speculum was inserted. Vaginal mucosa was developed with blunt and sharp dissection. The base of the uterosacral ligaments were grasped, transected and transfixed with 0 Vicryl. It took several clamping and suture maneuvers to move up the cervix since it was fairly long. Eventually the uterine vessels were encountered and these too were clamped, transected and transfixed. Note though desiccation effect was evident on both bilaterally on the uterine vessel bundles. At this point, the uterus was fairly mobile. We began a long process of morcellation. The cervix was removed. Single-tooth tenaculum were used to stabilize the uterus and bring it to the colpotomy wound. In a sequential manner, the uterine bulk was reduced by scalpel morcellation. Finally, the remnant was removed including tubes. After the uterus was removed, Bar was removed with it. A weighted speculum was placed. It became evident that a bleeding vessel was in the rectal fat pad superiorly to the cuff. The vessels were identified and the serial [id number] stitches placed. This remedy the bleeding completely. The vaginal peritoneum was purse-stringed together with 2-0 Vicryl. The uterosacral ligaments were brought together in the midline. The vaginal cuff was closed with a running suture of 0 Vicryl. Attention was next turned back to laparoscopy. The abdominal cavity was reinsufflated and inspected. All operative sites were confirmed as secure. Reference photos. Next, attention was turned to cystoscopy. A 70-degree video cystoscope was used to systematically inspect the bladder. There were no bladder incursions or stitches. Both ureteric orifices freely spilled clear yellow urine. The Starks was then replaced. The patient was uneventfully aroused from general anesthesia and taken to the recovery room in good condition. She was a bit slow to awake. Due to her developmental delay and need for extra instruction, she was admitted to an observation status. She had some difficulty understanding the need for the oral medications to control her pain. Anxiolytics were also prescribed. Anticipate total time in the hospital to be 2 midnights or possibly less. TD: 09/18/2017 19:11 HANY
== END 2017-09-18 11:20 | disposition home or self-care (01) ==
LOC: SDS 07:01 → MS2 13:22 → OBS 17:29
PROVIDERS: ADMIT Obstetrics & Gynecology; ATTEND Obstetrics & Gynecology
PROC: 0UT7FZZ Resection of Bilateral Fallopian Tubes, Via Natural or Artificial Opening With Percutaneous Endoscopic Assistance (ICD-10-PCS; 2017-09-17)
PROC: 0UT9FZZ Resection of Uterus, Via Natural or Artificial Opening With Percutaneous Endoscopic Assistance (ICD-10-PCS; principal; 2017-09-17 08:45)
DX: D25.0 Submucous leiomyoma of uterus (principal); N92.4 Excessive bleeding in the premenopausal period; D64.9 Anemia, unspecified; R62.50 Unspecified lack of expected normal physiological development in childhood; E66.9 Obesity, unspecified; Z68.35 Body mass index [BMI] 35.0-35.9, adult; Z96.643 Presence of artificial hip joint, bilateral
CPT/HCPCS: 36415; 58674; 81025; 85025; A9270; G0378; J0131; J0690; J1170; J3490; J7120

== ENCOUNTER 2017-12-08 13:44 | Outpatient (CLI) | payer MEDICAID | END 2017-12-08 13:45 | disposition home or self-care (01) | LOC: LAB.R 13:44 | PROVIDERS: ATTEND Obstetrics & Gynecology | DX: N76.0 Acute vaginitis (principal) | CPT/HCPCS: 87480; 87510; 87660 ==